=== PATIENT | female | born 1995 | race Caucasian/White ===

== ENCOUNTER 2021-07-28 09:40 | Outpatient (CLI) | payer BC ==
[2021-07-28] MEDS ORDERED: BETAMET ACET-BETAMETH SOD PHOS 6 MG/ML MDV IM SCH (10:45)
[2021-07-28] MEDS: LACTATED RINGERS 1,000 ML IV SCH ×2 (10:51→11:30)
[2021-07-28 10:59] LABS: Appearance,Urine Clear (Clear); Bilirubin,Urine Negative (Negative); Blood,Urine Negative (Negative); Color,Urine Yellow; Glucose,Urine (UA) Negative (Negative); Ketones,Urine Negative (Negative); Leukocyte Esterase,Urine Negative (Negative); Nitrite,Urine Negative (Negative); PH, Urine 6.5 (5.0-8.0); Protein,Urine Trace (Negative); Specific Gravity,Urine 1.016 (1.001-1.035); Urobilinogen,Urine <2.0 mg/dL (<2.0)
[2021-07-28] MEDS ORDERED: MAGNESIUM SULFATE GM 6 GM in SODIUM CHLORIDE 0.9% 100 ML IVPB ONE (11:41)
[2021-07-28] MEDS ORDERED: MAGNESIUM SULFATE-WATER PMX 20 GM in WATER FOR INJECTION 1 500ML.BAG IV SCH (11:45)
--- NOTE | 2021-07-28 12:20 | P.HPOB ---
History of Present Illness H&P Date: 07/28/21 Chief Complaint: 32-0/7 weeks, labor the patient is a 25-year-old 1 para 0 admitted at 32-0/7 weeks as established by last menstrual period and confirmed by 8 week ultrasound. She is admitted to triage with complaints of light pinkish spotting overnight and then an onset of cramping this morning. On labor and delivery, she was noted to be martin irregularly approximately every 7-9 minutes. Initial cervical examination demonstrated cervix to be fingertip to 1 cm, 50% effaced, the vertex in presentation at high station. She was hydrated and observed and continued to have contractions. The subcu when checked approximate 1-1/2 hours later demons trated her cervix to be now 1-2 cm in dilation 50% effaced with the vertex in presentation high station. As a result, she was started on magnesium sulfate with a 6 g bolus followed by 2 g per hour. She had Ac been given her first dose of intramuscular betamethasone. heart rate status is category 1. Bedside hand-held ultrasound demonstrates vertex presentation. Arrangements are currently being made for transfer to a tertiary care institution. Obstetrical history: 1 para 0 with current statistics listed in history present illness. EDC of 09/22/2021 was established by last menstrual period and confirmed by 8 week ultrasound. Laboratory workup demonstrates a blood type of A-, the patient received RhoGAM at 28 weeks, and a body screen negative. Rubella status is immune. The remainder of the laboratory workup was within normal limits. One hour Glucola was normal and group B strep status has not been done yet. Gynecologic history: Unremarkable with no history of any infections to include STDs. Review of Systems review of systems is confined to history of present illness. Past Medical History History of Any Multi-Drug Resistant Organisms: None Reported Smoking Status: Never smoker Medications and Allergies Home Medications Medication Instructions Recorded Confirmed Type Citalopram Hydrobromide [CeleXA] 20 mg PO DAILY 07/28/21 07/28/21 History Pnv No.95/Ferrous Fum/Folic AC 1 each PO DAILY 07/28/21 07/28/21 History [ Multivitamin Tablet] Allergies Allergy/AdvReac Type Severity Reaction Status Date / Time No Known Allergies Allergy Verified 07/28/21 09:53 Exam Intake and Output 07/27/21 07/28/2107/28/21 22:59 06:59 14:59 Other: Weight 83.461 kg in general, this is a well-developed, well-nourished white female in no acute distress. Her heart has a regular rhythm and rate without murmur. Her lungs are clear to auscultation bilaterally in all baldwin. Her abdomen is gravid, nondistended, has normal active bowel sounds, is soft, nontender, without any palpable masses aside from uterine fundus. Her extremities without any cyanosis, clubbing, or significant edema and are nontender to palpation bilaterally. Digital cervical examination performed by the nursing staff demonstrates her surgery 1 placenta meters dilated, 50% effaced, with the vertex in presentation at -3 station. Results Abnormal Lab Results - Last 24 Hours (Table) 07/28/21 Range/Units 10:00 Urine Protein Trace H (Negative) Assessment and Plan (1) 32 weeks gestation of Current Visit: Yes Status: Acute Code(s): Z3A.32 - 32 WEEKS GESTATION OF SNOMED Code(s): 5586223 (2) labor Current Visit: Yes Status: Acute Code(s): O60.00 - LABOR WITHOUT DELIVERY, UNSPECIFIED TRIMESTER SNOMED Code(s): 7660008 Plan: Discussed the case with the accepting physician at [facility] in [place], . The patient has been started on magnesium sulfate, 6 g IV bolus to be followed by 2 g per hour. She additionally has received her first dose of betamethasone. She will be transferred by ambulance to the above facility for further ongoing management secondary to the risk for prematurity and the need for intensive care potentially. The accepting physician has declined starting of antibiotics at this time as well as declined placement of Johnson catheter.
[2021-07-28 14:47] VITALS: BP 138/83; PULSE 103; RESP 18; TEMP 97.9
== END 2021-07-28 13:46 ==
LOC: FBPOP 09:40
PROVIDERS: ATTEND Obstetrics & Gynecology
DX: O60.00 Preterm labor without delivery, unspecified trimester (principal); Z3A.32 32 weeks gestation of pregnancy
CPT/HCPCS: 96372; 59025; 99215; 96361; 96365; 96366; 82731; 81003; J3475 ×2; J0702

== ENCOUNTER 2021-08-08 12:57 | Observation (INO) | payer BC ==
[2021-08-08] MEDS ORDERED: TERBUTALINE 1 MG/ML VIAL SQ PRN (14:03)
[2021-08-08] MEDS ORDERED: LACTATED RINGERS 1,000 ML IV ONE (14:03)
[2021-08-08] MEDS: LACTATED RINGERS 1,000 ML IV SCH ×2 (14:33→20:32)
[2021-08-08 14:39] LABS: Basophils % (A) 0 %; Eosinophils # (A) 0.1 k/uL (0-0.7); Eosinophils % (A) 1 %; HCT 36.1 % (34.0-46.0); HGB 12.2 gm/dL (11.4-16.0); Lymphocytes # (A) 1.7 k/uL (1.0-4.8); Lymphocytes % (A) 17 %; MCH 30.8 pg (25.0-35.0); MCHC 33.7 g/dL (31.0-37.0); MCV 91.3 fL (80.0-100.0); Mean Platelet Volume 8.9; Monocytes # (A) 0.7 k/uL (0-1.0); Monocytes % (A) 7 %; Neutrophils # (A) 7.3 k/uL (1.3-7.7); Neutrophils % (A) 73 %; Platelet Count 240 k/uL (150-450); RBC 3.95 m/uL (3.80-5.40); RDW 13.2 % (11.5-15.5)
--- NOTE | 2021-08-08 15:42 | P.HPOB ---
History of Present Illness H&P Date: 08/08/21 Chief Complaint: 33-4/7 weeks, contractions The patient is a 25-year-old 1 para 0 who presents to labor and delivery at 33-4/7 weeks as established by last menstrual period and confirmed by 8 week ultrasound. She presents today with concerns for possible rupture of membranes as well as some mild cramping. She carries a history of having been transferred to [facility] at 32-0/7 weeks for active labor at which time she was placed on magnesium sulfate and given 2 doses of betamethasone. She was released from [facility] approximately 2 days after transfer and has been stable until this time. She reports no other concerns at this time aside from the presence of watery discharge and concern for rupture of membranes as well as mild cramping. On labor and delivery, she does have a significant pattern of irritability with a category 1 heart rate tracing. Digital cervical examination performed by the nursing staff demonstrates her cervix to be approximately 3 cm dilated, 60% effaced, with the vertex in presentation at -2 station. This represents a change from her reported discharge cervical check at [facility] of approximate 2 cm 60% and -2 station. Obstetrical history: 1 para 0 with current statistics listed above. EDC of 09/22/2021 was established by last menstrual period and confirmed by 8 week ultrasound. Laboratory workup demonstrates a blood type of A negative the patient having received RhoGAM at 28 weeks. Rubella status is immune. Remainder of laboratory workup was normal and. One hour Glucola was also normal. Group B strep has not yet been done. Gynecologic history: Unremarkable with no history of any infections to include STDs. Review of Systems Review of systems is confined to history of present illness. Past Medical History History of Any Multi-Drug Resistant Organisms: None Reported Smoking Status: Never smoker Medications and Allergies Home Medications Medication Instructions Recorded Confirmed Type Citalopram Hydrobromide [CeleXA] 20 mg PO DAILY 07/28/21 08/08/21 History Pnv No.95/Ferrous Fum/Folic AC 1 each PO DAILY 07/28/21 08/08/21 History [ Multivitamin Tablet] Allergies Allergy/AdvReac Type Severity Reaction Status Date / Time No Known Allergies Allergy Verified 08/08/21 13:20 Exam Intake and Output 08/08/21 08/08/2121 06:59 14:59 22:59 Other: Weight 82.1 kg In general, this is a well-developed, well-nourished white female in no acute distress. At presentation, she did have some occasional discomfort with the uterine irritability. Her heart has a regular rhythm and rate without murmur. Her lungs are clear to auscultation bilaterally in all baldwin. Her abdomen is gravid, nondistended, has normal active bowel sounds, soft, nontender, and without any palpable masses aside from uterine fundus. Her extremities are without any cyanosis, clubbing, or edema and are nontender to palpation bilaterally. Digital cervical examination performed by the nursing staff demonstrates her surgery approximately 37 m dilated, 60% effaced, the vertex in presentation at -2 station. There is mild bloody show present upon examination. Results Result Diagrams: 08/08/21 14:01 Assessment and Plan (1) 33 weeks gestation of Current Visit: Yes Status: Acute Code(s): Z3A.33 - 33 WEEKS GESTATION OF SNOMED Code(s): 46688705 (2) contractions Current Visit: Yes Status: Acute Code(s): O47.00 - FALSE LABOR BEFORE 37 COMPLETED WEEKS OF GEST, UNSP TRI SNOMED Code(s): 667971348 Plan: The patient was managed in triage with IV fluids and terbutaline. After a single dose of subcutaneous terbutaline, the contractions have completely giorgio d. Given her early gestational age and somewhat advanced cervical dilation which is a change from the time of discharge at [facility], we have opted to admit her for 23 hour observation. She will continue to have IV hydration. Should she remains stable, she will be allowed to have a regular diet. She will otherwise be confined to bed rest with bathroom privileges. She will have continuous contraction monitoring though she has a reactive NST and we can perform an NST with each shift to confirm continued reactivity. SCDs will be added as the patient is at relative bedrest. Should she have any significant cervical change or indication of ongoing labor, magnesium sulfate will be reinstituted and the patient will be transferred to a tertiary care institution. Should she remain stable overnight, there is consideration for discharge home to [facility]. Close maternal and surveillance will continue.
[2021-08-08] MEDS ORDERED: TERBUTALINE 2.5 MG TAB PO PRN (16:27)
[2021-08-09] MEDS: LACTATED RINGERS 1,000 ML IV SCH ×2 (04:46)
[2021-08-09 09:19] VITALS: BP 121/76; PULSE 91; RESP 16; TEMP 98.1
--- NOTE | 2021-08-09 12:45 | P.DS ---
Providers Date of admission: 08/08/21 16:00 Expected date of discharge: 08/09/21 Attending physician: Anton Maier Primary care physician: Stated None - Discharge Diagnosis(es) (1) 33 weeks gestation of Current Visit: Yes Status: Acute (2) contractions Current Visit: Yes Status: Acute Hospital Course: The patient is a 25-year-old 1 para 0 admitted at 33-4/7 weeks after presenting to triage with complaints of possible rupture of membranes. This was disproven but she was noted to be having some watery discharge and some cramping. She previously been transferred to [place] for labor 32 weeks at which time she was on magnesium sulfate and received 2 doses of betamethasone. She was discharged from [place] approximately 2 cm of dilation. Examination by the nursing staff in our triage unit demonstrated her cervix to be 37 m of dilation. Given her pattern of irritability with irregular contractions, terbutaline was given subcutaneously which immediately quelled all contractions. Given her early gestational age and presentation, I opted to to admit her for 23 hour observation. She remained essentially without contractions that she registered though an occasional contraction was noted on the monitor. Recheck of her cervix this morning having received no further medical interventions by myself demonstrated cervix to be 2+ centimeters dilated, 60% effaced, the vertex in presentation at -3 station. She was deemed stable for discharge and was therefore discharged home to follow-up in the office as scheduled later this week. Instructions were to remain at relative bedrest with complete pelvic rest. She was to call for any significantly increased cramping or bleeding. She was certainly to call or return for any significant concerns for labor or rupture of membranes. She understood her instructions and agrees follow up as noted above. She was provided with a prescription for terbutaline 5 mg by mouth every 6 hours when necessary, #40 dispensed with no refills. These were to be used should any significant cramp ing begin. Any cramping that did not stop with the oral terbutaline with signal a reason to return to the hospital. Procedures: #1. Terbutaline tocolysis #2. IV hydration #3. 23 hour observation Patient Condition at Discharge: Stable Plan - Discharge Summary New Discharge Prescriptions: No Action Citalopram Hydrobromide [CeleXA] 20 mg PO DAILY Pnv No.95/Ferrous Fum/Folic AC [ Multivitamin Tablet] 1 each PO DAILY Discharge Medication List Citalopram Hydrobromide [CeleXA] 20 mg PO DAILY 07/28/21 [History] Pnv No.95/Ferrous Fum/Folic AC [ Multivitamin Tablet] 1 each PO DAILY 07/28/21 [History] Follow up Appointment(s)/Referral(s): Anton Maier MD [STAFF PHYSICIAN] - 3 Days Patient Instructions/Handouts: Premature Rupture of Membranes (GEN), Labor (DC) Discharge Disposition: HOME SELF-CARE
== END 2021-08-09 13:00 | disposition home or self-care (01) ==
LOC: FBPOP 12:57 → 4FBP 16:00
PROVIDERS: ADMIT Obstetrics & Gynecology; ATTEND Obstetrics & Gynecology
DX: O60.03 Preterm labor without delivery, third trimester (principal); Z3A.33 33 weeks gestation of pregnancy; Z74.01 Bed confinement status; Z79.899 Other long term (current) drug therapy
CPT/HCPCS: 99214; 59025; 96360; 96361; 96372; 84112; 85025; G0378 ×2; J3105; 96374

== ENCOUNTER 2021-08-28 21:05 | Outpatient (CLI) | payer BC ==
[2021-08-28 22:28] VITALS: BP 138/91; PULSE 101; RESP 16; TEMP 97.2
--- NOTE | 2021-09-21 17:08 | P.MSEPDOC ---
Presenting Problems - Arrival Data Date of Arrival on Unit: 08/28/21 Time of Arrival on Unit: 21:05 Mode of Transport: Wheelchair - Complaint OB-Reason for Admission/Chief Complaint: Other Comment: Increased pelvic pressure Medical History - Information : 1 Para: 0 Term: 0 : 0 Abortions: Spontaneous or Elective: 0 Number of Living Children: 0 - Gestational Age Gestational Age by RACHELL (wks/days): 36 Weeks and 3 Days Review of Systems - Review of Systems Constitutional: No problems Breast: No problems ENT: No problems Cardiovascular: No problems Respiratory: No problems Gastrointestinal: No problems Genitourinary: No problems Musculoskeletal: No problems Neurological: No problems Skin: No problems Vital Signs - Temperature Temperature: 97.2 F Temperature Source: Temporal Artery Scan - Pulse Right Brachial Pulse Rate: 101 Pulse Assessment Method: Automatic Cuff - Respirations Respiratory Rate: 16 Oxygen Delivery Method: Room Air O2 Sat by Pulse Oximetry: 99 - Blood Pressure Right Arm Blood Pressure: 138/91 Blood Pressure Mean: 106 Blood Pressure Source: Automatic Cuff Medical Screen Scoring - Cervical Exam Dilation (cm): 4 Effacement (%): 80 Station: -2 Membranes: Intact - Uterine Contractions Frequency From (mins): 0 Frequency To (mins): 0 Duration From (seconds): 0 Duration To (seconds): 0 Intensity: Absent Resting: Soft to palpation - Assessment - Baby A Baseline FHR: 145 Heart Rate - NICHD Category: Category I (Normal) NST: Reactive Physician Notification - Physician Notified Physician Notified Date: 08/28/21 Physician Notified Time: 21:28 Physician: Anton Maier Order Received: Yes - Notification Comment Comment: Recheck pt at one hour madelaine, d/c home if no cervical change. Pt denies contractions and no contractions on monitor. Reactive NST Maternal Triage Index - Maternal Triage Index Presenting for scheduled procedure w/no complaint: No - Stat/Priority 1 Stat Priority 1: No - Urgent/Priority 2 Urgent Priority 2: No - Prompt/Priority 3 Prompt Priority 3: No - Non-Urgent/Priority 4 Non-Urgent Priority 4: Yes Criteria Met for Priority 4: Increased pelvic pressure Disposition - Disposition OB Disposition: Discharge to home, Written follow up instructions reviewed Discharge Date: 08/28/21 Discharge Time: 22:16 I agree with the RN Medical Screening Exam: Yes Physician's MSE Comment: I have neither seen nor examined the patient. Case reviewed; plan agreed upon as documented in EMR&OBIX.: Yes Diagnosis: RELATED CONDITIONS, UNSPECIFIED, THIRD TRIMESTER
== END 2021-08-28 22:16 | disposition home or self-care (01) ==
LOC: FBPOP 21:05
PROVIDERS: ATTEND Obstetrics & Gynecology
DX: O26.93 Pregnancy related conditions, unspecified, third trimester (principal); Z3A.36 36 weeks gestation of pregnancy
CPT/HCPCS: 59025; 99213

== ENCOUNTER 2021-09-01 19:35 | Inpatient (IN) | payer BC ==
[2021-09-01] MEDS ORDERED: CARBOPROST TROMETHAMINE 250 MCG/ML 1 ML AMP IM PRN (20:07)
[2021-09-01] MEDS ORDERED: OXYTOCIN 10 UNIT/ML 1 ML VIAL IM PRN (20:07)
[2021-09-01] MEDS ORDERED: LIDOCAINE 0.5% (PF) 5 MG/ML (50 ML SDV) SQ PRN (20:07)
[2021-09-01] MEDS ORDERED: TERBUTALINE 1 MG/ML VIAL SQ PRN (20:07)
[2021-09-01] MEDS ORDERED: METHYLERGONOVINE 0.2 MG/ML 1 ML AMP IM PRN (20:07)
[2021-09-01] MEDS ORDERED: OXYTOCIN 30 UNITS/500 ML NS 30 UNIT in SALINE 1 500ML.BAG IV SCH ×2 (20:15→22:45)
[2021-09-01 20:35] LABS: Basophils % (A) 0 %; Eosinophils # (A) 0.2 k/uL (0-0.7); Eosinophils % (A) 2 %; HCT 35.9 % (34.0-46.0); HGB 12.3 gm/dL (11.4-16.0); Lymphocytes # (A) 2.1 k/uL (1.0-4.8); Lymphocytes % (A) 20 %; MCH 30.5 pg (25.0-35.0); MCHC 34.4 g/dL (31.0-37.0); MCV 88.8 fL (80.0-100.0); Mean Platelet Volume 9.5; Monocytes # (A) 0.6 k/uL (0-1.0); Monocytes % (A) 6 %; Neutrophils # (A) 7.5 k/uL (1.3-7.7); Neutrophils % (A) 70 %; Platelet Count 209 k/uL (150-450); RBC 4.04 m/uL (3.80-5.40); RDW 13.2 % (11.5-15.5); WBC 10.7 k/uL (3.8-10.6)
[2021-09-01] MEDS: LACTATED RINGERS 1,000 ML IV SCH (20:37)
--- NOTE | 2021-09-01 20:45 | P.HPOB ---
History of Present Illness H&P Date: 09/01/21 Chief Complaint: Spontaneous rupture of membranes at 37 weeks gestation This is a 25-year-old 1 para 0 woman with an estimated due date of 09/22/2021 based on LMP consistent with first trimester ultrasound. She presents at 37 weeks gestation with spontaneous rupture of membranes at approximately 6 PM. Her has been complicated by labor starting at 32 weeks. She was transferred to [facility] for monitoring and eventually was discharged undelivered. She has had advanced cervical dilation and received when necessary terbutaline. Her most recent evaluation in the office she reports she was 4+ centimeters dilated. Upon presentation today spontaneous rupture of membranes is confirmed and she is found to be 6-1/2 cm dilated 100% effaced and the vertex in the -2 station. She is therefore admitted in labor. She is known group B strep negative. She did receive steroids earlier in the . Laboratory data: Blood type A-, antibody screen negative, rubella immune, VDRL nonreactive, hepatitis B surface antigen negative, HIV negative, gonorrhea and clinic cultures negative, group B strep negative, glucose tolerance testing within normal limits. Review of Systems All systems: negative Past Medical History Past Medical History: No Reported History History of Any Multi-Drug Resistant Organisms: None Reported Past Surgical History: Cholecystectomy Past Anesthesia/Blood Transfusion Reactions: No Reported Reaction Past Psychological History: Anxiety Additional Psychological History / Comment(s): pt on celexa Smoking Status: Never smoker Past Alcohol Use History: None Reported Past Drug Use History: None Reported - Past Family History Mother Family Medical History: No Reported History Medications and Allergies Home Medications Medication Instructions Recorded Confirmed Type Citalopram Hydrobromide [CeleXA] 20 mg PO DAILY 07/28/21 09/01/21 History Pnv No.95/Ferrous Fum/Folic AC 1 each PO DAILY 07/28/21 09/01/21 History [ Multivitamin Tablet] Allergies Allergy/AdvReac Type Severity Reaction Status Date / Time No Known Allergies Allergy Verified 09/01/21 20:07 Exam Vital Signs Temp Pulse Resp BP Pulse Ox 09/01/21 20:06 96.7 F L 85 16 152/68 99 Intake and Output 09/01/21 09/01/21 09/01/21 06:59 14:59 22:59 Other: Weight 84.822 kg Targeted physical exam is performed. This is a visibly gravid, uncomfortable and actively laboring female. On pelvic exam the cervix is 7 cm dilated, 100% effaced and the vertex in the -2 station. Clear fluid is noted. heart tones are category 1. She is martin every 2-5 minutes. Results Result Diagrams: 09/01/21 20:25 Abnormal Lab Results - Last 24 Hours (Table) 09/01/21 Range/Units 20:25 WBC 10.7 H (3.8-10.6) k/uL Assessment and Plan (1) 37 weeks gestation of Current Visit: Yes Status: Acute Code(s): Z3A.37 - 37 WEEKS GESTATION OF SNOMED Code(s): 63056935 (2) Rh negative, maternal Current Visit: Yes Status: Acute Code(s): O26.899 - OTH RELATED CONDITIONS, UNSPECIFIED TRIMESTER; Z67.91 - UNSPECIFIED BLOOD TYPE, RH NEGATIVE SNOMED Code(s): 886871981 (3) Spontaneous rupture of membranes Current Visit: Yes Status: Acute Code(s): JXE7952 - SNOMED Code(s): 774556786 (4) Spontaneous onset of labor Current Visit: Yes Status: Acute Code(s): USR4009 - SNOMED Code(s): 47452949 Plan: 25-year-old 1 para 0 woman admitted at 37 weeks gestation with spontaneous rupture of membranes in active labor. She is group B strep negative and Rh-. The anesthesiologist was in consult for placement of an epidural anesthetic. status is currently reassuring by external monitoring. I anticipate normal spontaneous vaginal delivery.
[2021-09-01] MEDS ORDERED: ROPIVACAINE 100 MG, fentaNYL (PF). 200 MCG in SODIUM CHLORIDE 0.9% 76 ML EPIDURAL ONE (22:27)
[2021-09-01] MEDS ORDERED: diphenhydrAMINE 50 MG CAP PO PRN (22:39)
[2021-09-01] MEDS ORDERED: BENZOCAINE/MENTHOL SPRAY 1 GM/SPRAY AEROSOL TOPICAL PRN (22:39)
[2021-09-01] MEDS ORDERED: ACETAMINOPHEN TAB 325 MG TAB PO PRN (22:39)
[2021-09-01] MEDS ORDERED: ZOLPIDEM 5 MG TAB PO PRN (22:39)
[2021-09-01] MEDS ORDERED: diphenhydrAMINE 50 MG/ML 1 ML VIAL IVP PRN ×2 (22:39)
[2021-09-01] MEDS ORDERED: HYDROCORTISONE 2.5% RECTAL CREAM 30 GM TUBE RECTAL PRN (22:39)
[2021-09-01] MEDS ORDERED: SIMETHICONE 80 MG CHEWABLE PO PRN (22:39)
[2021-09-01] MEDS ORDERED: diphenhydrAMINE 25 MG CAP PO PRN (22:39)
[2021-09-01] MEDS ORDERED: LANOLIN CREAM 5 GM TUBE TOPICAL PRN (22:39)
--- NOTE | 2021-09-01 22:39 | P.PROBDLV ---
Vaginal Delivery Note - . Vaginal Delivery Note: Findings: Male infant in the left occiput anterior position with Apgars of 8 at 1 minute and 9 at 5 minutes weighing 7 lbs. 5 oz., 3330 g. Thick terminal meconium. First-degree perineal laceration and right labial laceration. Intact, three-vessel cord placenta with meconium staining. Delivery summary: This is a 25-year-old 1 para 0 woman who is admitted at 37 weeks gestation with spontaneous rupture of membranes in active labor. She was 6+ centimeters upon initial presentation and rupture of membranes was confirmed. Following admission she received an epidural anesthetic and rapidly progressed to complete cervical dilation. She had category 1 heart tones during the first stage. She commenced pushing with excellent maternal effort. She had approximately 40 minute second stage of labor. When the 's head was she was repositioned, prepped and draped in the modified Gail position. With additional maternal effort the head did deliver from the left occiput anterior position. There was very thick terminal meconium noted. The rest the was delivered onto the field without difficulty and the nose and mouth were bulb suctioned. The infant was placed on the maternal abdomen. The cord was eventually clamped and cut. Infant was taken to the warmer where Apgars were 8 at 1 minute and 9 at 5 minutes. The perineum was inspected and a first-degree laceration was noted. This was infused with lidocaine and repaired with 3-0 Vicryl suture. Eventually intact, three-vessel cord placenta was expressed and noted to be meconium-stained. Further inspection of the vagina revealed a right labial laceration. This was not bleeding however was large therefore was infused with lidocaine and was reapproximated with a running 3-0 Vicryl suture. This was not obstructing the urethra. The rest of the vagina and cervix were inspected no further lacerations were noted. The uterus was massaged and noted to be firm. The patient received Pitocin during the third stage of labor. EBL was approximately 150 mL's. All counts were correct.
[2021-09-02] MEDS: IBUPROFEN 600 MG TAB PO PRN ×4 (03:12→22:39)
[2021-09-02 06:29] LABS: Basophils % (A) 0 %; Eosinophils % (A) 0 %; HCT 32.1 % (34.0-46.0); Lymphocytes # (A) 1.5 k/uL (1.0-4.8); Lymphocytes % (A) 10 %; MCH 30.9 pg (25.0-35.0); MCHC 34.4 g/dL (31.0-37.0); MCV 89.8 fL (80.0-100.0); Mean Platelet Volume 10.9; Monocytes # (A) 0.7 k/uL (0-1.0); Monocytes % (A) 5 %; Neutrophils # (A) 11.9 k/uL (1.3-7.7); Neutrophils % (A) 84 %; Platelet Count 197 k/uL (150-450); RBC 3.57 m/uL (3.80-5.40); RDW 13.4 % (11.5-15.5); WBC 14.3 k/uL (3.8-10.6)
[2021-09-02] MEDS: SENNOSIDES-DOCUSATE SODIUM 1 EACH TAB PO SCH ×2 (07:29→20:02)
[2021-09-02] MEDS: LACTATED RINGERS 1,000 ML IV SCH (07:48)
--- NOTE | 2021-09-02 08:33 | P.PNOBGVD ---
Subjective - Subjective Patient reports: Reports appetite normal, Reports voiding normally, Reports pain well controlled, Reports ambulating normally [place]: doing well Objective - Latest Vital Signs Latest vital signs: Vital Signs Temp Pulse Resp BP Pulse Ox 09/02/21 07:40 98.4 F 78 16 133/84 09/02/21 00:23 97.9 F 90 16 143/86 09/01/21 23:53 98.0 F 81 16 131/74 09/01/21 23:23 97.9 F 80 16 136/66 09/01/21 23:08 98.0 F 91 16 144/81 09/01/21 22:53 90 16 143/86 09/01/21 22:38 97.2 F L 93 16 134/79 09/01/21 22:23 97.2 F L 86 16 151/81 09/01/21 20:06 96.7 F L 85 16 152/68 99 Intake and Output 09/01/21 09/02/21 09/02/21 22:59 06:59 14:59 Output Total 300 Balance -300 Output: Estimated Blood Loss 300 Other: # Voids 1 1 Weight 84.822 kg - Exam Extremities: Present: normal Abdomen: Present: normal appearance, soft Uterus: Present: normal, firm (the uterine fundus as tonic and nontender at the umbilicus.) - Labs Labs: Abnormal Lab Results - Last 24 Hours (Table) 09/01/21 09/02/21 Range/Units 20:25 06:00 WBC 10.7 H 14.3 H (3.8-10.6) k/uL RBC 3.57 L (3.80-5.40) m/uL Hgb 11.0 L (11.4-16.0) gm/dL Hct 32.1 L (34.0-46.0) % Neutrophils # 11.9 H (1.3-7.7) k/uL Assessment and Plan (1) Normal spontaneous vaginal delivery Current Visit: Yes Status: Acute Code(s): O80 - ENCOUNTER FOR FULL-TERM UNCOMPLICATED DELIVERY SNOMED Code(s): 95267505 Plan: continue routine care. I would anticipate discharge home tomorrow morning pending no complications.
[2021-09-02] MEDS: CITALOPRAM HYDROBROMIDE 20 MG TAB PO SCH (08:44)
[2021-09-02] MEDS ORDERED: Rhogam IMMUNE GLOBULIN 1,500 UNIT/1 ML IM ONE (09:04)
[2021-09-03] MEDS: IBUPROFEN 600 MG TAB PO PRN ×2 (05:47→12:01)
[2021-09-03] MEDS: SENNOSIDES-DOCUSATE SODIUM 1 EACH TAB PO SCH (08:07)
[2021-09-03 08:46] VITALS: BP 125/83; PULSE 76; RESP 16; TEMP 98.5
[2021-09-03] MEDS: CITALOPRAM HYDROBROMIDE 20 MG TAB PO SCH (08:50)
--- NOTE | 2021-09-03 09:35 | P.DS ---
Providers Date of admission: 09/01/21 19:57 Expected date of discharge: 09/03/21 Attending physician: Anton Maier Primary care physician: Stated None - Discharge Diagnosis(es) (1) Normal spontaneous vaginal delivery Current Visit: Yes Status: Acute Hospital Course: the patient is a 25-year-old 1 para 0 admitted at 37 weeks by good dating parameters. She is admitted in active labor with spontaneous rupture of membranes. Her pregnancies, 2 by labor with transfer to [facility] at 32 weeks. She received steroids and ultimately was able to be temporized until presentation at the time of admission. She did repeat present to the hospital on several occasions the contractions which were halted with subcutaneous terbutaline. Her was otherwise uncomplicated and group B strep status is negative. On labor and delivery, she had an epidural catheter placed for analgesia and then progressed fairly quickly to complete. She then pushed to a normal spontaneous vaginal delivery of a viable 7 lbs. 5 oz. baby boy with Apgars of 8 at 1 minute and 9 at 5 minutes. Her course was unremarkable with vital signs remained stable and her temperature was afebrile throughout. She was deemed stable for discharge on day #2 was discharged home to follow-up in the office in 6 weeks' time routinely. Discharge instructions included calling for any significantly increased bleeding or foul-smelling lochia, significantly increased fever abdominal pain, perineal complaints, breast complaints, or anything else that concerned her. She is additionally instructed to have nothing in the vagina for at least 6 weeks time to include intercourse. She understood her instructions and agrees to follow up as noted above. Discharge medications included only [id number] analgesic pain medications as well as continued vitamins as she has opted to breast-feed. Maternal blood type is A- and cord blood was sent for evaluation for the necessity of RhoGAM prior to discharge. Rubella status is immune. Procedures: #1. Epidural analgesia #2. Normal spontaneous vaginal delivery #3. Repair of perineal laceration Patient Condition at Discharge: Stable Plan - Discharge Summary New Discharge Prescriptions: No Action Citalopram Hydrobromide [CeleXA] 20 mg PO DAILY Pnv No.95/Ferrous Fum/Folic AC [ Multivitamin Tablet] 1 each PO DAILY Discharge Medication List Citalopram Hydrobromide [CeleXA] 20 mg PO DAILY 07/28/21 [History] Pnv No.95/Ferrous Fum/Folic AC [ Multivitamin Tablet] 1 each PO DAILY 07/28/21 [History] Follow up Appointment(s)/Referral(s): Anton Maier MD [STAFF PHYSICIAN] - 6 Weeks Discharge Disposition: HOME SELF-CARE
== END 2021-09-03 12:30 | disposition home or self-care (01) | DRG 807 ==
LOC: FBPOP 19:35 → 4FBP 19:57
PROVIDERS: ADMIT Obstetrics & Gynecology; ATTEND Obstetrics & Gynecology
PROC: 10E0XZZ Delivery of Products of Conception, External Approach (ICD-10-PCS; principal; 2021-09-01)
PROC: 0HQ9XZZ Repair Perineum Skin, External Approach (ICD-10-PCS; 2021-09-01)
PROC: 4A0HXCZ Measurement of Products of Conception, Cardiac Rate, External Approach (ICD-10-PCS; 2021-09-01)
PROC: 3E033VJ Introduction of Other Hormone into Peripheral Vein, Percutaneous Approach (ICD-10-PCS; 2021-09-01)
DX: O26.893 Other specified pregnancy related conditions, third trimester (principal); Z37.0 Single live birth; O70.0 First degree perineal laceration during delivery; O77.0 Labor and delivery complicated by meconium in amniotic fluid; O99.344 Other mental disorders complicating childbirth; F41.9 Anxiety disorder, unspecified; Z67.41 Type O blood, Rh negative; Z3A.37 37 weeks gestation of pregnancy; Z79.899 Other long term (current) drug therapy; Z90.49 Acquired absence of other specified parts of digestive tract
CPT/HCPCS: 85025; 85461; 86850; 86870; 86880; 86900; 86901; 88307

== ENCOUNTER 2024-10-19 09:00 | Outpatient (CLI) | payer BC ==
[2024-10-19 09:59] VITALS: BP 128/81; PULSE 93; RESP 18; TEMP 97.6
--- NOTE | 2024-10-21 12:54 | P.MSEPDOC ---
Presenting Problems - Arrival Data Date of Arrival on Unit: 10/19/24 Time of Arrival on Unit: 09:00 Mode of Transport: Ambulatory - Complaint OB-Reason for Admission/Chief Complaint: Possible Onset of Labor, Other Comment: Concerns of high blood pressure (pt took BP at home and was 130s-140s systolic) pt states she has had a headache the last 24 hours also. Contractions every 13-16 minutes apart today. Medical History - Information : 2 Para: 1 Term: 1 : 0 Abortions: Spontaneous or Elective: 0 Number of Living Children: 1 - Gestational Age Gestational Age by RACHELL (wks/days): 36 Weeks and 3 Days Review of Systems - Review of Systems Constitutional: No problems Breast: No problems ENT: No problems Cardiovascular: No problems Respiratory: No problems Gastrointestinal: No problems Genitourinary: No problems Musculoskeletal: No problems Neurological: No problems Skin: No problems Vital Signs - Temperature Temperature: 97.6 F Temperature Source: Temporal Artery Scan - Pulse Left Pulse Oximetery Pulse Rate: 93 Pulse Assessment Method: Pulse Oximetry - Respirations Respiratory Rate: 18 Oxygen Delivery Method: Room Air O2 Sat by Pulse Oximetry: 98 - Blood Pressure Right Arm Blood Pressure: 128/81 Blood Pressure Mean: 96 Blood Pressure Source: Automatic Cuff Medical Screen Scoring - Cervical Exam Dilation (cm): 3.5 Effacement (%): 80 Station: -2 Membranes: Intact - Uterine Contractions Frequency From (mins): 5 Frequency To (mins): 15 Duration From (seconds): 40 Duration To (seconds): 50 Intensity: Mild Resting: Soft to palpation - Assessment - Baby A Baseline FHR: 130 Heart Rate - NICHD Category: Category I (Normal) NST: Reactive Physician Notification - Physician Notified Physician Notified Date: 10/19/24 Physician Notified Time: 09:22 Physician: Margarita Feldman New Order Received: Yes - Notification Comment Comment: called again at 0947 to update BPs wnl and contractions 5-15 min apart, D/C order received Maternal Triage Index - Maternal Triage Index Presenting for scheduled procedure w/no complaint: No - Stat/Priority 1 Stat Priority 1: No - Urgent/Priority 2 Urgent Priority 2: No - Prompt/Priority 3 Prompt Priority 3: Yes Criteria Met for Priority 3: early labor signs and 36 3/7 weeks gestation Disposition - Disposition OB Disposition: Discharge to home Discharge Date: 10/19/24 Discharge Time: 09:50 I agree with the RN Medical Screening Exam: Yes Physician's MSE Comment: I have neither seen nor examined the patient Case reviewed; plan agreed upon as documented in EMR&OBIX.: Yes Diagnosis: GESTATIONAL HTN W/O SIGNIFICANT PROTEINURIA, THIRD TRIMESTER
== END 2024-10-19 09:50 | disposition home or self-care (01) ==
LOC: FBPOP 09:00
PROVIDERS: ATTEND Obstetrics & Gynecology
DX: O13.2 Gestational [pregnancy-induced] hypertension without significant proteinuria, second trimester (principal); Z3A.36 36 weeks gestation of pregnancy
CPT/HCPCS: 59025; 99213

== ENCOUNTER 2024-10-26 19:08 | Inpatient (IN) | payer BC ==
[~2024-10-26 19:08] MED LIST: ROPIVACAINE 5 MG/ML 30 ML VIAL ONE; SODIUM CHLORIDE 0.9% 250 ML BAG ONE; fentaNYL (PF) 50 MCG/ML 5 ML AMP ONE
[2024-10-26] MEDS ORDERED: OXYTOCIN 10 UNIT/ML 1 ML VIAL IM PRN (19:35)
[2024-10-26] MEDS ORDERED: TERBUTALINE 1 MG/ML VIAL SQ PRN (19:35)
[2024-10-26] MEDS ORDERED: CARBOPROST TROMETHAMINE 250 MCG/ML 1 ML AMP IM PRN (19:35)
[2024-10-26] MEDS ORDERED: miSOPROStoL 200 MCG TAB RECTAL PRN (19:35)
[2024-10-26] MEDS ORDERED: miSOPROStoL 200 MCG TAB PO PRN (19:35)
[2024-10-26] MEDS ORDERED: METHYLERGONOVINE 0.2 MG/ML 1 ML AMP IM PRN (19:35)
[2024-10-26] MEDS ORDERED: LIDOCAINE 0.5% (PF) 5 MG/ML (50 ML SDV) SQ PRN (19:35)
[2024-10-26] MEDS ORDERED: TRANEXAMIC 1,000 MG/100ML-NACL 1,000 MG in EMPTY BAG 1 BAG IV PRN (19:35)
[2024-10-26 20:51] LABS: Basophils % (A) 0 %; Eosinophils # (A) 0.1 k/uL (0-0.7); Eosinophils % (A) 1 %; HCT 33.5 % (34.0-46.0); HGB 10.6 gm/dL (11.4-16.0); Lymphocytes # (A) 1.6 k/uL (1.0-4.8); Lymphocytes % (A) 17 %; MCHC 31.7 g/dL (31.0-37.0); MCV 85.3 fL (80.0-100.0); Mean Platelet Volume 8.9; Monocytes # (A) 0.6 k/uL (0-1.0); Monocytes % (A) 7 %; Neutrophils # (A) 6.9 k/uL (1.3-7.7); Neutrophils % (A) 73 %; Platelet Count 256 k/uL (150-450); RBC 3.93 m/uL (3.80-5.40); WBC 9.4 k/uL (3.8-10.6)
[2024-10-26 20:58] VITALS: RESP 16
--- NOTE | 2024-10-26 23:35 | P.HPOB ---
History of Present Illness H&P Date: 10/26/24 Chief Complaint: 37-3/7 weeks, spontaneous rupture of membranes Patient is a 28-year-old 2 para 1-0-0-1 admitted at 37-3/7 weeks as established by last menstrual period and confirmed by 7-week ultrasound. She is admitted with documented spontaneous rupture of membranes and very early labor with all signs reassuring, category 1 heart rate tracing. Her has been essentially uncomplicated. She initially had a low-lying placenta at her 20-week ultrasound which resolved spontaneously at follow-up at 28 weeks. She otherwise is known to be Rh- and received RhoGAM at 28 weeks. Group B strep status is negative. Obstetrical history: 2 para 1-0-0-1 with 1 term vaginal delivery without complications. EDC of 11/13/2024 was established by last menstrual period and confirmed by 7-week ultrasound. Laboratory workup demonstrates a blood type of a negative with a negative antibody screen. Rubella status is immune. The remainder of the laboratory workup was within normal limits. 1 hour Glucola was normal and group B strep status is negative. Gynecologic history: Unremarkable with no history of any infections to include STDs. Review of Systems Review of systems is confined to history of present illness. Past Medical History Past Medical History: No Reported History History of Any Multi-Drug Resistant Organisms: None Reported Past Surgical History: Cholecystectomy Past Anesthesia/Blood Transfusion Reactions: No Reported Reaction Past Psychological History: Anxiety Additional Psychological History / Comment(s): pt on celexa Smoking Status: Never smoker Past Alcohol Use History: None Reported Past Drug Use History: None Reported - Past Family History Mother Family Medical History: No Reported History Medications and Allergies Allergies Allergy/AdvReac Type Severity Reaction Status Date / Time No Known Allergies Allergy Verified 10/19/24 09:28 Exam Vital Signs Temp Pulse Resp BP Pulse Ox 10/26/24 20:16 97.9 F 105 H 16 122/83 98 10/26/24 19:21 97.9 F 105 H 16 122/83 98 Intake and Output 10/26/24 10/26/24 10/27/24 14:59 22:59 06:59 Other: # Voids 1 Weight 80.739 kg In general, this is a well-developed, well-nourished white female in no acute distress. Her heart has a regular rhythm and rate without murmur. Her lungs are clear to auscultation bilateral in all [place]. Her abdomen is gravid, nondistended, has normal active bowel sounds, soft, nontender, and without any palpable masses aside from the uterine fundus. Her extremities are without any cyanosis, clubbing, or edema and are nontender to palpation bilaterally. D igital cervical examination demonstrates her cervix to be 3+ centimeters dilated, 70% effaced, with the vertex and presentation at -2 station. Spontaneous rupture of membranes with clear fluid is confirmed. Results Result Diagrams: 10/26/24 20:38 Abnormal Lab Results - Last 24 Hours (Table) 10/26/24 Range/Units 20:38 Hgb 10.6 L (11.4-16.0) gm/dL Hct 33.5 L (34.0-46.0) % Assessment and Plan (1) 37 weeks gestation of Current Visit: No Status: Acute Code(s): Z3A.37 - 37 WEEKS GESTATION OF SNOMED Code(s): 33215970 Plan: Patient is admitted for active management of labor. She will have close maternal and surveillance and expectant management will be practiced. She is a good candidate for either IV or epidural analgesia, which ever she may choose. Good active labor not begin in the next several hours, Pitocin augmentation will be added.
[2024-10-27] MEDS: LACTATED RINGERS 1,000 ML IV SCH (00:52)
[2024-10-27] MEDS: NALBUPHINE 10 MG/ML (10 ML MDV) IV PRN (00:53)
[2024-10-27] MEDS: OXYTOCIN 30 UNITS/500 ML NS 30 UNIT in SALINE 1 500ML.BAG IV SCH (05:45)
[2024-10-27] MEDS ORDERED: diphenhydrAMINE 50 MG CAP PO PRN (11:11)
[2024-10-27] MEDS ORDERED: ZOLPIDEM 5 MG TAB PO PRN (11:11)
[2024-10-27] MEDS ORDERED: diphenhydrAMINE 50 MG/ML 1 ML VIAL IVP PRN ×2 (11:11)
[2024-10-27] MEDS ORDERED: HYDROCORTISONE 2.5% RECTAL CREAM 30 GM TUBE RECTAL PRN (11:11)
[2024-10-27] MEDS ORDERED: LANOLIN CREAM 1 GM TUBE TOPICAL PRN (11:11)
[2024-10-27] MEDS ORDERED: SIMETHICONE 80 MG CHEWABLE PO PRN (11:11)
[2024-10-27] MEDS ORDERED: BENZOCAINE/MENTHOL SPRAY 1 GM/SPRAY AEROSOL TOPICAL PRN (11:11)
[2024-10-27] MEDS ORDERED: diphenhydrAMINE 25 MG CAP PO PRN (11:11)
[2024-10-27] MEDS ORDERED: OXYTOCIN 30 UNITS/500 ML NS 30 UNIT in SALINE 1 500ML.BAG IV SCH (11:15)
--- NOTE | 2024-10-27 11:15 | P.PROBDLV ---
Vaginal Delivery Note - . Vaginal Delivery Note: The patient is a 28-year-old 2 para 1-0-0-1 admitted at 37-3/7 weeks with documented spontaneous rupture of membranes and few contractions. Her was uncomplicated and group B strep status is negative. She is Rh- and received RhoGAM at 28 weeks. On labor and delivery, all signs are reassuring with a category 1 heart rate tracing. She began to contract on her own through the night and ultimately had an epidural catheter placed for analgesia around the onset of the active phase of labor. She continued to make relatively slow progress but at a cervical check was found to have a fairly tense bag of water in front of the head which was ruptured artificially for a significant amount of fluid. She thereafter progressed very quickly to complete and 0 to +1 station. She pushed over the course of 3 contractions to a normal spontaneous vaginal delivery of a viable 6 pound 9 ounce baby girl with Apgars of 9 at 1 minute and 9 at 5 minutes delivered in the right occiput anterior position. The placenta was delivered spontaneously, intact, grossly normal with a grossly normal, centrally inserted three-vessel cord. There were no lacerations of the perineum, vagina, or cervix aside from periurethral skin splits not requiring intervention. Estimated blood loss for the case was 100 mL. There were no complications. All sponge, instrument, and needle counts were correct. Both mother and infant are resting comfortably in recovery.
[2024-10-27] MEDS: Rhogam IMMUNE GLOBULIN 1,500 UNIT/1 ML IM ONE (14:46)
[2024-10-27] MEDS: IBUPROFEN 800 MG TAB PO PRN (17:10)
[2024-10-27] MEDS: SENNOSIDES-DOCUSATE SODIUM 1 EACH TAB PO SCH (21:24)
[2024-10-28] MEDS: ACETAMINOPHEN TAB 500 MG TAB PO PRN (00:44)
[2024-10-28 05:41] LABS: Basophils % (A) 0 %; Eosinophils # (A) 0.1 k/uL (0-0.7); Eosinophils % (A) 1 %; HCT 30.6 % (34.0-46.0); HGB 9.7 gm/dL (11.4-16.0); Hypochromasia Slight; Lymphocytes # (A) 1.3 k/uL (1.0-4.8); Lymphocytes % (A) 14 %; MCH 27.6 pg (25.0-35.0); MCHC 31.7 g/dL (31.0-37.0); MCV 87.1 fL (80.0-100.0); Mean Platelet Volume 9.1; Monocytes # (A) 0.6 k/uL (0-1.0); Monocytes % (A) 7 %; Neutrophils # (A) 7.1 k/uL (1.3-7.7); Neutrophils % (A) 76 %; Platelet Count 217 k/uL (150-450); RBC 3.52 m/uL (3.80-5.40); RDW 13.3 % (11.5-15.5); WBC 9.4 k/uL (3.8-10.6)
--- NOTE | 2024-10-28 08:29 | P.DS ---
Providers Date of admission: 10/26/24 19:37 Expected date of discharge: 10/28/24 Attending physician: Anton Maier Primary care physician: Stated None - Discharge Diagnosis(es) (1) 37 weeks gestation of Current Visit: Yes Status: Acute (2) Normal spontaneous vaginal delivery Current Visit: Yes Status: Acute Hospital Course: The patient is a 28-year-old 2 para 1-0-0-1 admitted at 37-3/7 weeks by good dating parameters. She is admitted with documented spontaneous rupture of membranes and very early labor with all signs reassuring, category 1 heart rate tracing. Her was uncomplicated and group B strep status is negative. She is Rh- and received RhoGAM at 28 weeks. On labor and delivery, she made slow progress and had an epidural catheter placed for analgesia. She was found to have a forebag which was ruptured artificially for a fairly sign ificant amount of fluid after which time she progressed fairly quickly to complete. She then pushed quickly to a normal spontaneous vaginal delivery of a viable 6 pound 9 ounce baby girl with Apgars of 9 at 1 minute and 9 at 5 minutes. Her course was unremarkable with vital signs remained stable and her temperature was afebrile throughout. She was deemed stable for discharge on day #1 and was discharged home to follow-up in the office in 6 weeks time routinely. Discharge instructions included calling for any significantly increased bleeding or foul-smelling lochia, significantly increased fever abdominal pain, perineal complaints, breast complaints, or anything else that concerned her. She was additionally instructed to have nothing in the vagina for at least 6 weeks time to include intercourse. She understood her instructions and agrees to follow-up as noted above. Discharge medications included continued vitamins as she has opted to breast- feed. She was otherwise to use [id number] analgesic pain medications as needed. Maternal blood type is A- and cord blood was sent for evaluation for the necessity of RhoGAM prior to discharge. Rubella status is immune. Procedures: #1. Epidural analgesia #2. Normal spontaneous vaginal delivery Patient Condition at Discharge: Stable Plan - Discharge Summary Follow up Appointment(s)/Referral(s): Anton Maier MD [STAFF PHYSICIAN] - 6 Weeks Discharge Disposition: HOME SELF-CARE
[2024-10-28 08:46] VITALS: BP 116/77; PULSE 74; TEMP 98
== END 2024-10-28 11:57 | disposition home or self-care (01) | DRG 807 ==
LOC: FBPOP 19:08 → 4FBP 19:37
PROVIDERS: ADMIT Obstetrics & Gynecology; ATTEND Obstetrics & Gynecology
PROC: 10E0XZZ Delivery of Products of Conception, External Approach (ICD-10-PCS; principal; 2024-10-27)
PROC: 3E033VJ Introduction of Other Hormone into Peripheral Vein, Percutaneous Approach (ICD-10-PCS; 2024-10-27)
PROC: 3E0234Z Introduction of Serum, Toxoid and Vaccine into Muscle, Percutaneous Approach (ICD-10-PCS; 2024-10-27)
DX: O42.02 Full-term premature rupture of membranes, onset of labor within 24 hours of rupture (principal); Z37.0 Single live birth; O99.344 Other mental disorders complicating childbirth; F41.9 Anxiety disorder, unspecified; O26.893 Other specified pregnancy related conditions, third trimester; Z3A.37 37 weeks gestation of pregnancy; Z67.40 Type O blood, Rh positive; Z90.49 Acquired absence of other specified parts of digestive tract
CPT/HCPCS: 59025; 84112; 85025; 85461; 86850; 86870; 86880; 86900; 86901; 86902; 99213